=== PATIENT | female | born 1970 | race Caucasian/White ===

== ENCOUNTER 2016-12-02 20:52 | Emergency (ER) | payer BC ==
[~2016-12-02] VITALS: Ht 162.6 cm; Wt 104.3 kg
[2016-12-02 20:54] VITALS: BP 170/109
[2016-12-02] MEDS ORDERED: PREDNISONE 20 M20 MG PO (21:05)
== END 2016-12-02 21:05 | disposition home or self-care (01) ==
LOC: ER 20:52
DX: T78.1XXA Other adverse food reactions, not elsewhere classified, initial encounter (principal); F17.210 Nicotine dependence, cigarettes, uncomplicated; F10.99 Alcohol use, unspecified with unspecified alcohol-induced disorder; X58.XXXA Exposure to other specified factors, initial encounter